=== PATIENT | female | born 1995 | race Two or more races ===

== ENCOUNTER 2024-05-07 07:50 | Outpatient (CLI) | payer OTHER | END 2024-05-07 08:16 | disposition home or self-care (01) | LOC: SONOGRAMA 07:50 | DX: M47.812 Spondylosis without myelopathy or radiculopathy, cervical region (principal); M47.814 Spondylosis without myelopathy or radiculopathy, thoracic region; M47.817 Spondylosis without myelopathy or radiculopathy, lumbosacral region; M25.512 Pain in left shoulder; R10.9 Unspecified abdominal pain ==

== ENCOUNTER 2024-05-26 07:08 | Outpatient (CLI) | payer OTHER | END 2024-05-26 07:10 | disposition home or self-care (01) | LOC: NUCLEAR 07:08 | PROVIDERS: ATTEND Internal Medicine Gastroenterology | DX: R10.9 Unspecified abdominal pain (principal) ==